=== PATIENT | male | born 2005 | race Two or more races ===

== ENCOUNTER → 2024-03-20 | Outpatient (CLI) | payer OTHER, SELFPAY ==
--- NOTE | 2024-03-20 16:19 | EKG_ITS ---
[facility] Test Date: 2024-03-20 Pat Name: IRINA GONZALES Department: Room: - Gender: Male [employer] Helper: VANDANA : 2005 Requested By: Sarbjit Felton (PCP) Order Number: [id number] Reading MD: Sarbjit Felton (PCP) Measurements Intervals [place] Rate: 88 P: 70 WV: 134 QRS: 58 QRSD: 70 T: 36 QT: 327 QTc: 397 Interpretive Statements SINUS RHYTHM WITH MARKED SINUS ARRHYTHMIA Compared to ECG 06/24/2023 09:37:58 No significant changes /[id number]
== END | disposition home or self-care (01) ==
LOC: SEKG 16:00
PROVIDERS: PCP Family Medicine; Referring Provider Family Medicine; Visit Provider Family Medicine
DX: R07.9 Chest pain, unspecified (principal); R00.2 Palpitations
CPT/HCPCS: 93005